=== PATIENT | male | born 1985 | race Caucasian/White ===

== ENCOUNTER → 2016-08-30 | Outpatient (CLI) | payer OTHER ==
[~2016-08-30] MED LIST: AZITTAB PO; HYDR-5688 PO; MULT-506 PO; OMEG10007 PO
== END | disposition home or self-care (01) ==
LOC: C.LAB 03:16
DX: Z02.83 Encounter for blood-alcohol and blood-drug test (principal)

== ENCOUNTER 2016-09-21 16:07 | Emergency (ER) | payer BC, OTHER ==
[~2016-09-21] VITALS: Ht 182.9 cm; Wt 80.5 kg
[~2016-09-21 16:07] MED LIST changes: -AZITTAB PO; -HYDR-5688 PO
[2016-09-21 16:16] VITALS: TEMP 36.9; Ht 182.9 cm; Wt 80.5 kg
--- NOTE | 2016-09-21 16:32 | EMERGENCY ROOM VISIT NOTE ---
History First contact with patient: 16:20 Chief Complaint: FLU LIKE SX Stated Complaint: COUGH History of Present Illness The patient is a 31 year old male who presents to the Emergency Room with complaints of upper respiratory symptoms. The patient states his symptoms started on Thursday. He reports going to the clinic and was told that he has a viral illness and had a negative influenza swab. The patient states that he has had fevers, chills, productive cough. He states that he has pain bilaterally in the posterior chest. He states it is particularly worse with coughing. He denies any abdominal pain, nausea or vomiting. He denies any diarrhea. He denies any recent travel. He denies any recent surgery. He denies any personal or family history of DVT, PE or coagulopathy. He denies any personal history of cancer. Review of Systems A 10 system review of systems was completed with positives and pertinent negatives listed in the HPI. Past Medical/Surgical History Medical Problems: (1) No Known Active Medical Problems Social History Smoking Status: Current Every Day Smoker Occupation Status: employed Current/Historical Medications Scheduled Azithromycin (Zithromax Z-Charito), 1 PKT PO UD Allergies Coded Allergies: No Known Allergies (Verified , 09/21/16) Physical Exam Vital Signs Date Time Temp Pulse Resp B/P Pulse Ox O2 Delivery O2 Flow Rate FiO2 09/21/16 17:51 78 16 125/74 97 09/21/16 16:46 83 09/21/16 16:16 36.9 106 18 124/77 96 Room Air Physical Exam VITALS: Vitals are noted on the nurse's note and reviewed by myself. Vital signs stable. The patient is afebrile. GENERAL: This is a 31-year-old male, in no acute distress, nondiaphoretic, well- developed well-nourished. SKIN: The skin was without rashes, erythema, edema, or bruising. There is no tenting of the skin. Capillary reflex less than 2 seconds. HEAD: Normocephalic atraumatic. EARS: External auditory canals clear, tympanic membranes pearly contreras without erythema or effusion bilaterally. EYES: Pupils equal round and reactive to light and accommodation. Conjunctivae without injection, sclerae without icterus. Extraocular movements intact. NOSE: Patent, turbinates without inflammation or discharge. MOUTH: Mucous membranes moist. Tonsils are not enlarged. Mild posterior pharyngeal erythema. Uvula midline. Airway patent. Tongue does not deviate. NECK: Supple without nuchal rigidity. No lymphadenopathy. No thyromegaly. Cervical spine is nontender. No JVD. HEART: Regular rate and rhythm without murmurs gallops or rubs. LUNGS: Clear to auscultation bilaterally without wheezes, rales or rhonchi. No retractions or accessory muscle use. MUSCULOSKELETAL: No muscle atrophy, erythema, or edema noted. Full range of motion in all extremities. Normal gait. Strength 5/5 throughout. NEURO: Patient was alert and oriented to person place and time. No focal neurological deficits. Medical Decision & Procedures ER Provider Diagnostic Interpretation: TWO VIEW CHEST CLINICAL HISTORY: Cough. FINDINGS: PA and lateral chest radiographs are compared to study dated 03/08/2013. The cardiomediastinal silhouette is unremarkable. Streaky airspace opacities are identified at the right lung base. The lungs are otherwise clear. No pleural effusion or pneumothorax is seen. The bony thorax appears intact. IMPRESSION: Streaky airspace opacities are identified at the right lung base. This could represent atelectasis versus a developing infectious/inflammatory pneumonitis. Clinical correlation will be required. Laboratory Results Test 09/21/16 16:41 Influenza Type A Antigen Neg for Influ A (NEG) Influenza Type B Antigen POS for Influ B (NEG) ED Course The patient was seen and examined. Previous visits were reviewed. The patient was afebrile. He is nontoxic in appearance. The patient is positive for influenza. His symptoms have been present for the last 4 days and I do not feel that Tamiflu would be of benefit. The patient also has an area suggestive of pneumonitis on chest x-ray. This could potentially represent a viral pneumonitis but the patient will be covered with a Z-Charito for potential bacterial process. He will be given a note for work. He should use Tylenol and ibuprofen for symptomatic treatment. He should return to the ER with any worsening symptoms. Otherwise, he should follow-up with his family doctor next week. Medical Decision DIFFERENTIAL DIAGNOSIS: Aortic dissection, myocarditis, pericarditis, cervical disc disease, costochondritis, herpes zoster, rib fracture, pleuritis, pneumonia , pulmonary embolus, tension pneumothorax, anxiety disorder, somatoform disorder , choledocholithiasis, status, esophagitis, esophageal spasm, esophageal reflux , esophageal rupture, pancreatitis, peptic ulcer disease, cardiac ischemia, ST elevation [place], acute coronary syndrome, arrhythmia, coronary artery vasospasm. vavular heart disease, coronary artery disease, among others. Impression Primary Impression: Influenza B Additional Impression: Pneumonitis Departure Information Dispostion Home / Self-Care Condition GOOD Prescriptions Azithromycin (ZITHROMAX Z-CHARITO) 250 Mg Tab 1 PKT PO UD, #1 PKT Prov: Kristi Pak PA-C 09/21/16 Referrals Girma Yao M.D. (PCP) Patient Instructions ED Flu, My [facility] Additional Instructions Zithromax as prescribed, until finished Tylenol or ibuprofen according to package instructions for pain/fever Recheck with your family doctor if symptoms are not improving by the middle to end of this week Return with any worsening symptoms Problem Qualifiers
[2016-09-21] MEDS ORDERED: AZITTAB PO (17:42)
[2016-09-21 17:51] VITALS: BP 125/74; PULSE 78; O2SAT 97
--- NOTE | 2016-09-21 18:11 | DIAGNOSTIC IMAGING REPORT ---
TWO VIEW CHEST CLINICAL HISTORY: Cough. FINDINGS: PA and lateral chest radiographs are compared to study dated 03/08/2013. The cardiomediastinal silhouette is unremarkable. Streaky airspace opacities are identified at the right lung base. The lungs are otherwise clear. No pleural effusion or pneumothorax is seen. The bony thorax appears intact. IMPRESSION: Streaky airspace opacities are identified at the right lung base. This could represent atelectasis versus a developing infectious/inflammatory pneumonitis. Clinical correlation will be required. Electronically signed by: Juancho Steven M.D. 09/21/2016 4:57 PM Dictated Date/Time: 09/21/2016 4:56 PM
== END 2016-09-21 17:52 | disposition home or self-care (01) ==
LOC: C.EDB 16:08 → C.EDC 17:52
DX: J11.00 Influenza due to unidentified influenza virus with unspecified type of pneumonia (principal); F17.200 Nicotine dependence, unspecified, uncomplicated

== ENCOUNTER 2016-12-26 22:18 | Emergency (ER) | payer BC ==
[~2016-12-26] VITALS: Ht 182.9 cm; Wt 82.0 kg
[2016-12-26 22:26] VITALS: TEMP 36.7; Ht 182.9 cm; Wt 82.0 kg
[2016-12-26] MEDS ORDERED: HYDROCODONE/ACETAMOPHEN 5/325MG TAB PO STA (23:00)
--- NOTE | 2016-12-26 23:32 | EMERGENCY ROOM VISIT NOTE ---
ED Visit Note First contact with patient: 22:32 CHIEF COMPLAINT: Left knee pain HISTORY OF PRESENT ILLNESS: This 31-year-old male presents the ER with chief complaint of left knee pain. The patient states that he is on his feet all day at his place of employment. He states he has had left knee pain which started approximately 1 month ago and has gotten progressively worse. The patient states that he feels a "popping" in his knee. The patient states the knee does not give out or lock on him. The patient denies any trauma to the knee. The patient states he has been appointment with his family physician on Thursday to evaluate his knee but he states that the pain has gotten more severe and he is unable sleep due to the pain. He has tried [id number] medications without any relief. REVIEW OF SYSTEMS: 6 system review was performed and was negative unless stated otherwise in history of present illness. PMH: The patient is healthy; there is no significant medical or surgical history. SOCIAL HISTORY: Patient admits to tobacco use and occasional alcohol use. PHYSICAL EXAM: Vital Signs: Were reviewed Reviewed Nurse's notes. GENERAL: 31- year-old white male appears in no acute distress. MENTAL STATUS: Alert, oriented, and cooperative. LEFT: KNEE: Mild swelling noted. No erythema noted. There is no joint effusion. The patient is tenderness on both sides of the patella. The patient has full range of motion of the knee. With a palpable crepitus noted with flexion and extension of the knee. There is no ligamentous instability. The skin is normal and intact. The patient walks with an antalgic gait. EMERGENCY DEPARTMENT COURSE: The patient was evaluated. The patient was given Chelsea 5/325 mg 2 tablets by mouth for pain. X-ray of the right knee was ordered and interpreted by myself without any acute findings. This will later be interpreted by the radiologist. The patient was informed of the x-ray findings. The patient was given a Chelsea home pack. The patient was discharged home in stable condition. DIAGNOSIS: Left knee pain DISCHARGE INSTRUCTIONS: Ibuprofen 600 mg every 6 hours with food for pain. Take Chelsea as needed for more severe pain. Do not drive while taking the Chelsea. Ice and elevate your leg after prolonged weightbearing. Off work tomorrow. Follow-up with orthopedics for further evaluation and treatment. Current/Historical Medications No Active Prescriptions or Reported Meds Allergies Coded Allergies: No Known Allergies (Verified , 12/26/16) Vital Signs Date Time Temp Pulse Resp B/P (MAP) Pulse Ox O2 Delivery O2 Flow Rate FiO2 12/26/16 22:26 36.7 82 18 114/75 99 Room Air Medications Administered Medications (Trade) Dose Ordered Sig/Megan Route Start Time Stop Time Status Last Admin Dose Admin Acetaminophen/ Hydrocodone Bitart (Chelsea 5/325 Tab) 2 tab NOW STAT PO 12/26/16 23:00 12/26/16 23:02 DC 12/26/16 23:10 2 TAB Departure Information Prescriptions No Active Prescriptions or Reported Meds Referrals Girma Yao M.D. (PCP) Patient Instructions My [facility]
[2016-12-26] MEDS ORDERED: HYDR-5688 PO (23:37)
[2016-12-26] MEDS ORDERED: NORCO 5/325MG HOME PACK PO ONE (23:45)
[2016-12-26 23:55] VITALS: BP 118/72; PULSE 82; O2SAT 97
--- NOTE | 2016-12-27 06:08 | DIAGNOSTIC IMAGING REPORT ---
LEFT KNEE 3 VIEWS CLINICAL HISTORY: knee pain/include sunrise pain. COMPARISON: None. DISCUSSION: The bones and joint spaces appear intact. There is no evidence of fracture, dislocation or bony disease. There is no evidence for soft tissue swelling. IMPRESSION: Negative study. Electronically signed by: Guy Basurto M.D. 12/27/2016 6:06 AM Dictated Date/Time: 12/27/2016 6:06 AM
== END 2016-12-26 23:57 | disposition home or self-care (01) ==
LOC: C.EDB 22:20
DX: M25.562 Pain in left knee (principal); F17.200 Nicotine dependence, unspecified, uncomplicated

== ENCOUNTER 2017-10-12 20:52 | Emergency (ER) | payer BC, OTHER ==
[~2017-10-12] VITALS: Ht 182.9 cm; Wt 75.5 kg
[2017-10-12 21:01] VITALS: TEMP 36.9; Ht 182.9 cm; Wt 75.5 kg
[2017-10-12] MEDS ORDERED: LORAZEPAM 2 MG/ML 1 ML VIAL IV STA (21:24)
[2017-10-12 21:49] LABS: BASO % 0.6 %; BASO ABS # 0.04 K/uL (0-0.2); EOS ABS # 0.14 K/uL (0-0.5); HEMATOCRIT 43.2 % (42-52); HEMOGLOBIN 15.5 g/dL (14.0-18.0); IG# 0.01 K/uL (0.00-0.02); LYMPH % 30.6 %; LYMPH ABS # 2.15 K/uL (1.2-3.4); MEAN CELL VOLUME 91.7 fL (80-100); MEAN CORPUSCULAR HEMOGLOBIN 32.9 pg (25-34); MEAN CORPUSCULAR HGB CONC 35.9 g/dl (32-36); MEAN PLATELET VOLUME 9.3 fL (7.4-10.4); MONO % 7.1 %; NEUT % 59.6 %; NEUT ABS # 4.19 K/uL (1.4-6.5); PLATELET COUNT 224 K/uL (130-400); RED CELL DISTRIBUTION WIDTH CV 12.5 % (11.5-14.5); RED CELL DISTRIBUTION WIDTH SD 42.1 fL (36.4-46.3); WHITE BLOOD COUNT 7.03 K/uL (4.8-10.8)
[2017-10-12 22:13] LABS: CALCIUM 8.8 mg/dl (8.5-10.1); CREATININE 1.26 mg/dl (0.60-1.40); POTASSIUM 3.7 mmol/L (3.5-5.1)
[2017-10-12 22:24] LABS: TOTAL PROTEIN 7.4 gm/dl (6.4-8.2)
[2017-10-12 23:24] VITALS: BP 121/71; PULSE 69; O2SAT 99
--- NOTE | 2017-10-13 00:37 | EMERGENCY ROOM VISIT NOTE ---
History Report prepared by Toño: Dawson Byers Under the Supervision of: Dr. Tony Noel M.D. First contact with patient: 21:11 Chief Complaint: ANXIETY Stated Complaint: ANXIETY,DEPRESSION History of Present Illness The patient is a 32 year old male who presents to the Emergency Room with complaints of worsening anxiety that began this afternoon after a visit with his counselor. The patient states that "my counselor got me worked up today." "She called me an "fucking loser" He denies any thoughts of hurting himself, or taking any extra medications. He is complaining of "tightness" in his chest along with numbness in his right arm and legs after his counselor made these derogatory terms to him, the patient feels these symptoms are likely due to his anxiety/anger at his counselor. He has no other physical symptoms. Source of History: patient Onset: This afternoon Position: head (Psych), chest Quality: other (Chest tightness, secondary to anxiety) Timing: worsening Associated Symptoms: + numbness Review of Systems See HPI for pertinent positives and negatives. A total of ten systems were reviewed and were otherwise negative. Past Medical & Surgical Medical Problems: (1) No Known Active Medical Problems Family History FHx: cancer FHx: heart disease Hypertension Social History Smoking Status: Former Smoker Occupation Status: employed Current/Historical Medications No Active Prescriptions or Reported Meds Allergies Coded Allergies: No Known Allergies (Verified , 10/12/17) Physical Exam Vital Signs Date Time Temp Pulse Resp B/P (MAP) Pulse Ox O2 Delivery O2 Flow Rate FiO2 10/12/17 23:24 69 18 121/71 99 10/12/17 22:50 75 18 129/87 98 Room Air 10/12/17 21:18 75 10/12/17 21:01 36.9 81 18 131/89 99 Room Air Physical Exam Physical Exam GENERAL: He is oriented to person, place, and time. He appears well-developed and well-nourished. He does not appear distressed. ____ HENT: Exam performed. Head: Normocephalic and atraumatic. Right Ear: External ear normal. No mastoid tenderness. Left Ear: External ear normal. No mastoid tenderness. Mouth/Throat: The oropharynx is clear and moist. No trismus in the jaw. No dental abscesses or uvula swelling. No oropharyngeal exudate or tonsillar abscesses. ____ EYES: Conjunctivae and EOM are normal. Pupils are equal, round, and reactive to light. Right eye exhibits no discharge. Left eye exhibits no discharge. No scleral icterus. ____ NECK: Normal range of motion. Neck supple. No JVD present. No spinous process tenderness present. No carotid bruit present. No rigidity. No tracheal deviation and normal range of motion present. No Brudzinski's sign and no Kernig 's sign noted. ____ CV: Normal rate, regular rhythm, normal heart sounds and intact distal pulses. There is no peripheral edema. Palpable radial pulses bue. ____ PULM/CHEST: Effort normal and breath sounds normal. No respiratory distress. No stridor. He has no wheezes. He has no rales. Chest Wall: He exhibits no tenderness. ____ ABD: The abdomen is soft. Bowel sounds are normal. He has no distension. No mass is present. There is no tenderness. There is no rebound, no guarding, no Delarosa's sign and no tenderness at McBurney's point. Rovsig negative MUSC/SKEL: Normal range of motion. There is no peripheral edema, tenderness or deformity. LYMPH: No cervical adenopathy. ____ NEURO: He is alert and oriented to person, place, and time. He has normal strength. No cranial nerve deficit or sensory deficit. Coordination and gait normal. GCS eye subscore is 4. GCS verbal subscore is 5. GCS motor subscore is 6. Cerebellar tests wnl. ____ SKIN: Skin is warm and dry. He is not diaphoretic. ____ PSYCH: Patient is agitated and appears angry. Medical Decision & Procedures Laboratory Results 10/12/17 21:33 Red Blood Count 4.71, Mean Corpuscular Volume 91.7, Mean Corpuscular Hemoglobin 32.9, Mean Corpuscular Hemoglobin Concent 35.9, Mean Platelet Volume 9.3, Neutrophils (%) (Auto) 59.6, Lymphocytes (%) (Auto) 30.6, Monocytes (%) (Auto) 7.1, Eosinophils (%) (Auto) 2.0, Basophils (%) (Auto) 0.6, Neutrophils # (Auto) 4.19, Lymphocytes # (Auto) 2.15, Monocytes # (Auto) 0.50, Eosinophils # (Auto) 0.14, Basophils # (Auto) 0.04 10/12/17 21:33 Test 10/12/17 21:24 10/12/17 21:33 10/12/17 22:03 Urine Color YELLOW Urine Appearance CLOUDY (CLEAR) Urine pH 6.5 (4.5-7.5) Urine Specific [place] 1.015 (1.000-1.030) Urine Protein NEG (NEG) Urine Glucose (UA) TRACE (NEG) Urine Ketones NEG (NEG) Urine Occult Blood NEG (NEG) Urine Nitrite NEG (NEG) Urine Bilirubin NEG (NEG) Urine Urobilinogen NEG (NEG) Urine Leukocyte Esterase NEG (NEG) Urine WBC (Auto) 0 /hpf (0-5) Urine RBC (Auto) 0-4 /hpf (0-4) Urine Hyaline Casts (Auto) 0 /lpf (0-5) Urine Epithelial Cells (Auto) 0-5 /lpf (0-5) Urine Bacteria (Auto) NEG (NEG) White Blood Count 7.03 K/uL (4.8-10.8) Red Blood Count 4.71 M/uL (4.7-6.1) Hemoglobin 15.5 g/dL (14.0-18.0) Hematocrit 43.2 % (42-52) Mean Corpuscular Volume 91.7 fL (80-100) Mean Corpuscular Hemoglobin 32.9 pg (25-34) Mean Corpuscular Hemoglobin Concent 35.9 g/dl (32-36) Platelet Count 224 K/uL (130-400) Mean Platelet Volume 9.3 fL (7.4-10.4) Neutrophils (%) (Auto) 59.6 % Lymphocytes (%) (Auto) 30.6 % Monocytes (%) (Auto) 7.1 % Eosinophils (%) (Auto) 2.0 % Basophils (%) (Auto) 0.6 % Neutrophils # (Auto) 4.19 K/uL (1.4-6.5) Lymphocytes # (Auto) 2.15 K/uL (1.2-3.4) Monocytes # (Auto) 0.50 K/uL (0.11-0.59) Eosinophils # (Auto) 0.14 K/uL (0-0.5) Basophils # (Auto) 0.04 K/uL (0-0.2) RDW Standard Deviation 42.1 fL (36.4-46.3) RDW Coefficient of Variation 12.5 % (11.5-14.5) Immature Granulocyte % (Auto) 0.1 % Immature Granulocyte # (Auto) 0.01 K/uL (0.00-0.02) Anion Gap 10.0 mmol/L (3-11) Est Creatinine Clear Calc Drug Dose 89.0 ml/min Estimated GFR () 86.3 Estimated GFR (Non- 74.5 BUN/Creatinine Ratio 11.4 (10-20) Calcium Level 8.8 mg/dl (8.5-10.1) Total Bilirubin 0.4 mg/dl (0.2-1) Direct Bilirubin 0.1 mg/dl (0-0.2) Aspartate Amino Transf (AST/SGOT) 22 U/L (15-37) Alanine Aminotransferase (ALT/SGPT) 47 U/L (12-78) Alkaline Phosphatase 83 U/L (45-117) Total Protein 7.4 gm/dl (6.4-8.2) Albumin 4.0 gm/dl (3.4-5.0) Thyroid Stimulating Hormone (TSH) 4.200 uIu/ml (0.300-4.500) Ethyl Alcohol mg/dL < 3.0 mg/dl (0-3) Urine Opiates Screen NEG (NEG) Urine Methadone, Qualitative NEG (NEG) Urine Barbiturates NEG (NEG) Urine Phencyclidine (PCP) Level NEG (NEG) Ur Amphetamine/Methamphetamine NEG (NEG) MDMA (Ecstasy) Screen NEG (NEG) Urine Benzodiazepines Screen NEG (NEG) Urine Cocaine Metabolite NEG (NEG) Urine Marijuana (THC) NEG (NEG) Laboratory results reviewed by me Medications Administered Medications (Trade) Dose Ordered Sig/Megan Route Start Time Stop Time Status Last Admin Dose Admin Lorazepam (Ativan Inj) 1 mg NOW STAT IV 10/12/17 21:24 10/12/17 21:26 DC 10/12/17 21:58 1 MG ECG Per My Interpretation Indication: chest pain Rate (beats per minute): 69 Findings: other (No AYO/STD, [place], QTC, QRS within normal limits. ) ED Course 2115: The patient was evaluated in room A7. A complete history and physical exam was performed. 2123: Ordered Ativan 1 mg IV. 2236: Labs and EKG within normal limits. Patient was cleared by psychiatric Case Liaison. He is given a list of new psychiatric providers so he can choose a new PCP. The patient will be discharged home. DISCHARGE - Plan of care discussed with patient and questions answered. The patient was given both verbal and printed discharge instructions. The patient verbalized understanding and ability to comply. The patient is to seek outpatient follow up as noted in the discharge instructions. The patient verbalized understanding and ability to comply. The patient is discharged in stable condition. The patient was instructed to return for worsening symptoms. Medical Decision Labs and EKG within normal limits. Patient was cleared by psychiatric Case Liaison. He is given a list of new psychiatric providers so he can choose a new PCP. The patient will be discharged home. DISCHARGE - Plan of care discussed with patient and questions answered. The patient was given both verbal and printed discharge instructions. The patient verbalized understanding and ability to comply. The patient is to seek outpatient follow up as noted in the discharge instructions. The patient verbalized understanding and ability to comply. The patient is discharged in stable condition. The patient was instructed to return for worsening symptoms. Medication Reconcilliation Current Medication List: was personally reviewed by me Blood Pressure Screening Patient's blood pressure: Normal blood pressure Impression Primary Impression: Depression Scribe Attestation The scribe's documentation has been prepared under my direction and personally reviewed by me in its entirety. I confirm that the note above accurately reflects all work, treatment, procedures, and medical decision making performed by me. The chart was completed utilizing [employer] Speech voice recognition software. Grammatical errors, random word insertions, pronoun errors, and incomplete sentences are an occasional consequence of this system due to software limitations, ambient noise, and hardware issues. Any formal questions or concerns about the content, text, or information contained within the body of this dictation should be directly addressed to the physician for clarification. Departure Information Dispostion Home / Self-Care Prescriptions No Active Prescriptions or Reported Meds Referrals No Doctor, Assigned (PCP) Forms HOME CARE DOCUMENTATION FORM, IMPORTANT VISIT INFORMATION Patient Instructions My [facility] Additional Instructions Follow-up with mental health providers provided to you in 1 7 days. Problem Qualifiers Primary Impression: Depression Depression Type: unspecified Qualified Codes: F32.9 - Major depressive disorder, single episode, unspecified
== END 2017-10-12 23:24 | disposition home or self-care (01) ==
LOC: C.EDB 20:54 → C.EDA 23:24
DX: F32.9 Major depressive disorder, single episode, unspecified (principal); Z87.891 Personal history of nicotine dependence